=== PATIENT | female | born 1940 | race American Indian/Alaskan Native ===

== ENCOUNTER 2020-09-17 00:15 | Observation (INO) | payer MEDICARE ==
[2020-09-17 00:49] LABS: Basophils % (Auto) 0.6 % (0.0-1.8); Eosinophils # (Auto) 0.1 K/mm3 (0.0-0.4); Eosinophils % (Auto) 2.1 % (0.0-4.3); Hematocrit 37.2 % (30.3-42.9); Hemoglobin 12.4 gm/dl (10.1-14.3); Lymphocytes # (Auto) 1.6 K/mm3 (1.2-5.4); Mean Corpuscular HGB Conc 33 % (30-34); Mean Corpuscular Volume 90 fl (79-97); Monocytes # (Auto) 0.5 K/mm3 (0.0-0.8); Platelet Count 152 K/mm3 (140-440); Red Blood Count 4.12 M/mm3 (3.65-5.03); Red Cell Distribution Width 14.8 % (13.2-15.2)
--- NOTE | 2020-09-17 00:59 | XRay Report ---
CHEST PA AND LATERAL VIEWS INDICATION: chest pain. COMPARISON: None. FINDINGS: Support devices: None. Heart: Borderline enlarged. There has been prior sternotomy. Lungs/Pleura: No acute pulmonary or pleural findings. IMPRESSION: 1. No acute findings. Signer Name: Marco Schreiber MD Signed: 09/17/2020 12:54 AM Workstation Name: [id number]
[2020-09-17 01:27] LABS: Alanine Aminotransferase 11 units/L (7-56); Albumin 4.7 g/dL (3.9-5); BUN/Creatinine Ratio 16; Blood Urea Nitrogen 18 mg/dL (7-17); Calcium 8.9 mg/dL (8.4-10.2); Hemolysis Index 7
--- NOTE | 2020-09-17 07:20 | Event Note ---
ED Screening Note ED Screening Note: cp htn family upset with wait hx cva and numerous stents charge nurse aware This initial assessment/diagnostic orders/clinical plan/treatment(s) is/are subject to change based on patients health status, clinical progression and re- assessment by fellow clinical providers in the ED. Further treatment and workup at subsequent clinical providers discretion. Patient/guardian urged not to elope from the ED as their condition may be serious if not clinically assessed and managed. Initial orders include: ro acs
[2020-09-17] MEDS ORDERED: NITROGLYCERIN 2% OINT 1 GM TP ONE (07:57)
[2020-09-17] MEDS ORDERED: cloNIDine 0.1 MG TAB PO ONE (07:57)
--- NOTE | 2020-09-17 07:59 | Emergency Department Report ---
HPI - General Chief Complaint: Chest Pain Time Seen by Provider: 09/17/20 07:20 - HPI HPI: Room 23 The patient is a 80-year-old female present with a chief complaint of chest pain. Patient states since yesterday she has had intermittent substernal chest pain described as jabbing in nature. Patient admits to diaphoresis and shortness of breath associated with this chest pain but denies nausea/vomiting. Patient currently denies chest pain but states she had her last episode approximately 1 hour before this interview. The patient states she has also had bilateral lower extremity pain and swelling for months and has had ultrasounds in the past to rule out DVT. The patient states she was told this was due to a "problem" with her veins. Patient states she has received approximately 7-8 cardiac stents most recent of which was placed 3 to 4 years ago ED Past Medical Hx - Past Medical History Previous Medical History?: Yes Hx Hypertension: Yes Hx Heart Attack/AMI: Yes Hx COPD: Yes Hx Dementia: Yes Additional medical history: "watching kidneys" - Surgical History Past Surgical History?: Yes Hx Coronary Stent: Yes (7-8 cardiac stents) - Family History Family history: no significant - Social History Smoking Status: Former Smoker (None x30 years) Substance Use Type: None ED Review of Systems ROS: Stated complaint: CHEST PAIN Other details as noted in HPI Constitutional: diaphoresis Eyes: denies: eye pain ENT: denies: throat pain Respiratory: shortness of breath Cardiovascular: chest pain Endocrine: no symptoms reported Gastrointestinal: denies: nausea, vomiting Genitourinary: denies: dysuria Musculoskeletal: denies: back pain Skin: denies: lesions Neurological: denies: headache Physical Exam - Physical Exam Vital Signs: Vital Signs 09/17/20 09/17/20 00:20 07:21 Temperature 98.1 F Pulse Rate 89 62 Respiratory 18 18 Rate Blood Pressure 175/97 Blood Pressure 172/92 [Right] O2 Sat by Pulse 98 100 Oximetry Physical Exam: GENERAL: The patient is well-developed well-nourished female lying on stretcher not appearing to be in acute distress. [] HEENT: Normocephalic. Atraumatic. Extraocular motions are intact. Patient has moist mucous membranes. NECK: Supple. Trachea midline CHEST/LUNGS: Clear to auscultation. There is no respiratory distress noted. HEART/CARDIOVASCULAR: Regular. There is no tachycardia. There is no gallop rub or murmur. ABDOMEN: Abdomen is soft, nontender. Patient has normal bowel sounds. There is no abdominal distention. SKIN: There is no rash. There is no edema. There is no diaphoresis. NEURO: The patient is awake, alert, and oriented. The patient is cooperative. The patient has no focal neurologic deficits. The patient has normal speech MUSCULOSKELETAL: There is no evidence of acute injury. ED Course Vital Signs 09/17/20 09/17/20 00:20 07:21 Temperature 98.1 F Pulse Rate 89 62 Respiratory 18 18 Rate Blood Pressure 175/97 Blood Pressure 172/92 [Right] O2 Sat by Pulse 98 100 Oximetry ED Medical Decision Making - Lab Data Result diagrams: 09/17/20 00:37 09/17/20 00:37 Laboratory Tests 09/17/20 09/17/20 09/17/20 00:37 00:37 04:01 WBC 5.4 RBC 4.12 Hgb 12.4 Hct 37.2 MCV 90 MCH 30 MCHC 33 RDW 14.8 Plt Count 152 Lymph % (Auto) 29.0 [place] % (Auto) 9.0 H Eos % (Auto) 2.1 Baso % (Auto) 0.6 Lymph # (Auto) 1.6 [place] # (Auto) 0.5 Eos # (Auto) 0.1 Baso # (Auto) 0.0 Seg Neutrophils % 59.3 Seg Neutrophils # 3.2 Sodium 144 Potassium 4.1 Chloride 107.7 H Carbon Dioxide 25 Anion Gap 15 BUN 18 H Creatinine 1.1 Estimated GFR 48 BUN/Creatinine Ratio 16 Glucose 104 H Calcium 8.9 Total Bilirubin 0.40 AST 16 ALT 11 Alkaline Phosphatase 97 Troponin T < 0.010 < 0.010 Total Protein 6.6 Albumin 4.7 Albumin/Globulin Ratio 2.5 - EKG Data -: EKG Interpreted by Me EKG shows normal: sinus rhythm Rate: normal - EKG Data When compared to previous EKG there are: previous EKG unavailable Interpretation: nonspecific ST-T wave hannah (T wave inversion lead V3) - Radiology Data Radiology results: report reviewed (Chest x-ray), image reviewed (Chest x-ray) interpreted by me: Chest x-ray-no focal infiltrates, no pneumothorax. No foreign body seen [facility] [address] [place] [address] XRay Report Signed Patient: ROYCE BARR MR#: [id number] : 1940 Acct:[id number] Age/Sex: 80 / F ADM Date: 09/17/20 Loc: ED Attending Dr: Ordering Physician: MARK BANKS MD Date of Service: 09/17/20 Procedure(s): XR chest routine 2V Accession Number(s): [id number] cc: ED MD JOCELYN Fluoro Time In Minutes: CHEST PA AND LATERAL VIEWS INDICATION: chest pain. COMPARISON: None. FINDINGS: Support devices: None. Heart: Borderline enlarged. There has been prior s ternotomy. Lungs/Pleura: No acute pulmonary or pleural findings. IMPRESSION: 1. No acute findings. Signer Name: Marco Schreiber MD Signed: 09/17/2020 12:54 AM Workstation Name: [id number] Transcribed By: JC Dictated By: Marco Schreiber MD Electronically Authenticated By: Marco Schreiber MD Signed Date/Time: 09/17/2053 DD/ TD/TT: Print Cancel - Differential Diagnosis ACS, unstable angina, pericarditis, GERD Critical care attestation.: If time is entered above; I have spent that time in minutes in the direct care o f this critically ill patient, excluding procedure time. ED Disposition Clinical Impression: Chest pain Disposition: OP ADMIT IP TO THIS HOSP Is pt being admited?: Yes Does the pt Need Aspirin: Yes Condition: Fair Instructions: Nonspecific Chest Pain, Adult Referrals: PRIMARY CARE, [Primary Care Provider] - 3-5 Days Time of Disposition: 08:03 (Hospitalist paged) Heart Score - HEART Score History: Moderately suspicious EKG: Non-specific Age: > 65 Risk factors: 1-2 risk factors Troponin: < normal limit HEART Score: 5 - EKG Read Time Time EKG Completed: 00:27 EKG Read Time: 00:30
[2020-09-17] MEDS ORDERED: ASPIRIN 325 MG TAB PO ONE (08:01)
[2020-09-17] MEDS ORDERED: fentaNYL 100 MCG/2 ML INJ IV PRN (08:02)
[2020-09-17] MEDS ORDERED: ONDANSETRON 4 MG/2 ML INJ IV PRN (08:02)
[2020-09-17] MEDS ORDERED: fentaNYL 100 MCG/2 ML INJ IV ONE (09:40)
--- NOTE | 2020-09-17 11:34 | History and Physical Report ---
History of Present Illness Date of examination: 09/17/20 Date of admission: 09/17/20 08:06 Chief complaint: Chest pain of 1 day duration History of present illness: 80-year-old female patient from [place] visiting her daughter in [place] with significant past medical history of coronary artery disease status post multiple PCI unable to give me the particulars of 1 she had the last PCI, hypertension dementia COPD presented to the emergency room with intermittent substernal and left sided chest pain associated with shortness of breath and mild diaphoresis patient denies nausea vomiting or abdominal pain, Patient received aspirin and nitroglycerin with significant relief Patient denies fever or cough, no history of Covid infection or contact with Covid patients 2 sets of cardiac enzymes were negative, chest x-ray no acute abnormality EKG no acute ST-T changes The time of my evaluation patient denies any chest pain Past History Past Medical History: CAD, COPD, hypertension, hyperlipidemia, other (Dementia) Past Surgical History: PTCA (Multiple stents) Social history: full code. denies: smoking (Quit smoking), alcohol abuse, prescription drug abuse Family history: no significant family history Medications and Allergies Allergies Allergy/AdvReac Type Severity Reaction Status Date / Time zolpidem [From Ambien] Allergy Unknown Verified 09/17/20 08:22 Home Medications Medication Instructions Recorded Confirmed Last Taken Type Clopidogrel [Plavix] 75 mg PO QDAY 09/17/20 09/17/20 Unknown History Dicyclomine [Bentyl] 10 mg PO TID 09/17/20 09/17/20 Unknown History Ezetimibe/Simvastatin 1 each PO QHS 09/17/20 09/17/20 Unknown History [Ezetimibe-Simvastatin 10-40 mg] Furosemide [Lasix] 20 mg PO BID 09/17/20 09/17/20 Unknown History Galantamine HBr 4 mg PO QDAY 09/17/20 09/17/20 Unknown History Losartan Potassium 100 mg PO QDAY 09/17/20 09/17/20 Unknown History Meloxicam [Mobic] 7.5 mg PO BID 09/17/20 09/17/20 Unknown History Memantine [Namenda] 5 mg PO QDAY 09/17/20 09/17/20 Unknown History Potassium Chloride [K-Dur] 20 meq PO BID 09/17/20 09/17/20 Unknown History Active Meds: Active Medications Fentanyl (Fentanyl 100 Mcg/2 Ml Inj) 25 mcg IV ONCE PRN PRN Reason: Pain , Severe (7-10) Ondansetron HCl (Ondansetron 4 Mg/2 Ml Inj) 8 mg IV ONCE PRN PRN Reason: Nausea Review of Systems Constitutional: weakness, no weight loss, no weight gain, no fever, no chills Ears, nose, mouth and throat: no nasal congestion, no nasal discharge Cardiovascular: chest pain, shortness of breath, no orthopnea, no palpitations Respiratory: no cough, no shortness of breath Gastrointestinal: no abdominal pain, no nausea, no vomiting Genitourinary Female: no pelvic pain, no dysuria Musculoskeletal: no myalgias, no arthritis Integumentary: no rash, no lesions Neurological: weakness, no numbness, no seizures Psychiatric: no anxiety, no depression Endocrine: no cold intolerance, no heat intolerance, no polydipsia, no polyuria Hematologic/Lymphatic: no easy bruising, no easy bleeding Allergic/Immunologic: no urticaria, no allergic rhinitis Exam - Constitutional Vitals: Temp Pulse Resp BP Pulse Ox 98.1 F 59 L 14 130/67 99 09/17/20 00:20 09/17/20 10:16 09/17/20 10:16 09/17/20 10:16 09/17/20 10:16 General appearance: Present: mild distress, well-nourished - EENT Eyes: Present: PERRL, EOM intact - Neck Neck: Present: supple, normal ROM - Respiratory Respiratory effort: normal Respiratory: bilateral: diminished, negative: rales, rhonchi, wheezing - Cardiovascular Rhythm: regular Heart Sounds: Present: S1 & S2 - Extremities Extremities: no ischemia, No edema - Abdominal General gastrointestinal: Present: soft, non-tender, non-distended, normal bowel sounds - Integumentary Integumentary: Present: clear, warm - Musculoskeletal Musculoskeletal: strength equal bilaterally - Psychiatric Psychiatric: appropriate mood/affect, cooperative - Neurologic Neurologic: moves all extremities HEART Score - HEART Score EKG: Non-specific Age: > 65 Risk factors: 1-2 risk factors Troponin: Troponin T < 0.010 ng/mL (0.00-0.029) 09/17/20 04:01 Troponin: < normal limit Results - Labs CBC & Chem 7: 09/17/20 00:37 09/17/20 00:37 Labs: Abnormal lab results 09/17/20 09/17/20 Range/Units 00:37 00:37 [place] % (Auto) 9.0 H (0.0-7.3) % Chloride 107.7 H (98-107) mmol/L BUN 18 H (7-17) mg/dL Glucose 104 H (65-100) mg/dL Assessment and Plan --Chest pain/angina; Nitroglycerin sublingual as needed for chest pain Serial cardiac enzymes, EKG Echocardiogram for LV function ejection fraction Aspirin, Plavix, beta-blockers, RASHARD inhibitors, nitrates, statins Patient has significant coronary artery disease with multiple stents in the past We'll consult cardiology --CAD s/p multiple stents Resume patient's home medications cardiology consult --Hypertension; Moderate control, continue Losartan, Lasix, and low dose Coreg Closely monitor as needed hydralazine, --Dyslipidemia; continue lipid-lowering meds, Low-cholesterol diet --DVT prophylaxis; Lovenox --Full CODE STATUS We'll closely monitor the patient and adjust management as needed Plan of care reviewed with the patient and her nurse
--- NOTE | 2020-09-17 11:45 | Electrocardiograph Report ---
[facility] Test Date: 2020-09-17 Test Time: 00:27:03 Pat Name: ROYCE BARR Department: Room: A472 Gender: F Pharmacy Clinical Specialist: DANIELA : 1940 Requested By: ED DOC Order Number: [id number] Reading MD: Antonio Hwang Measurements Intervals [place] Rate: 71 P: 43 MS: 167 QRS: -4 QRSD: 90 T: 42 QT: QTc: 0 Interpretive Statements Sinus rhythm No previous ECG available for comparison Electronically Signed On 09-17-2020 11:44:57 EDT by Antonio Hwang
[2020-09-17] MEDS: DICYCLOMINE 10 MG CAP PO SCH ×2 (13:37→21:01)
[2020-09-17] MEDS ORDERED: MORPHINE 2 MG/1 ML INJ IV PRN (15:23)
[2020-09-17] MEDS ORDERED: NITROGLYCERIN 0.4 MG TAB SUBL SL PRN (15:23)
--- NOTE | 2020-09-17 16:26 | Consultation ---
History of Present Illness Consult date: 09/17/20 Requesting physician: SADE FOX Consult reason: chest pain History of present illness: This pt is a 80 year old female with a hx of HTN, AMI, CAD with multiple PCI (8), Dementia, COPD. She is previously unknown to our practice. She lived in [place] and is only in town to visit family. Pt presents to [facility] with c/o chest pain, dizziness x 2 days. Chest pain is described as sharp, intermittent non radiating and not worse with inspiration or exertion. She received ASA and NTG in ER to which she reported relief of symptoms. Pt is a rather poos historian, but denies any weakness, syncope, ALFA, Cough, ABD Pain, N/V/D, recent illness or exposures. Past History Past Medical History: acute CA, CAD (PCI x 8), COPD, hypertension, hyperlipidemia, other (Dementia) Past Surgical History: PTCA (Multiple stents) Social history: full code. denies: smoking (Quit smoking), alcohol abuse, prescription drug abuse Family history: no significant family history Medications and Allergies Allergies Allergy/AdvReac Type Severity Reaction Status Date / Time zolpidem [From Ambien] Allergy Unknown Verified 09/17/20 08:22 Home Medications Medication Instructions Recorded Confirmed Last Taken Type Clopidogrel [Plavix] 75 mg PO QDAY 09/17/20 09/17/20 Unknown History Dicyclomine [Bentyl] 10 mg PO TID 09/17/20 09/17/20 Unknown History Ezetimibe/Simvastatin 1 each PO QHS 09/17/20 09/17/20 Unknown History [Ezetimibe-Simvastatin 10-40 mg] Furosemide [Lasix] 20 mg PO BID 09/17/20 09/17/20 Unknown History Galantamine HBr 4 mg PO QDAY 09/17/20 09/17/20 Unknown History Losartan Potassium 100 mg PO QDAY 09/17/20 09/17/20 Unknown History Meloxicam [Mobic] 7.5 mg PO BID 09/17/20 09/17/20 Unknown History Memantine [Namenda] 5 mg PO QDAY 09/17/20 09/17/20 Unknown History Potassium Chloride [K-Dur] 20 meq PO BID 09/17/20 09/17/20 Unknown History Active Meds: Active Medications Carvedilol (Carvedilol 3.125 Mg Tab) 3.125 mg PO BID [facility] Clopidogrel Bisulfate (Clopidogrel 75 Mg Tab) 75 mg PO QDAY [facility] Dicyclomine HCl (Dicyclomine 10 Mg Cap) 10 mg PO TID [facility] Last Admin: 09/17/20 13:37 Dose: 10 mg Documented by: Ezetimibe (Ezetimibe 10 Mg Tab) 10 mg PO QHS [facility] Enoxaparin Sodium (Enoxaparin 40 Mg/0.4 Ml Inj) 40 mg SUB-Q QDAY@2200 [facility]; Protocol Galantamine Hydrobromide (Galantamine 4 Mg Tab) 4 mg PO QDAY [facility] Losartan Potassium (Losartan 50 Mg Tab) 100 mg PO QDAY [facility] Memantine (Memantine 5 Mg Tab) 5 mg PO QDAY [facility] Morphine Sulfate (Morphine 2 Mg/1 Ml Inj) 2 mg IV Q4H PRN PRN Reason: Pain, Moderate (4-6) Nitroglycerin (Nitroglycerin 0.4 Mg Tab Subl) 0.4 mg SL .Q5MIN PRN PRN Reason: Chest Pain Ondansetron HCl (Ondansetron 4 Mg/2 Ml Inj) 8 mg IV ONCE PRN PRN Reason: Nausea Pravastatin Sodium (Pravastatin 80 Mg Tab) 80 mg PO QHS [facility] Review of Systems Constitutional: no weight loss, no weight gain, no fever, no chills, no sweats Ears, nose, mouth and throat: no ear pain, no ear discharge, no nasal congestion, no nasal discharge, no sinus pressure Cardiovascular: chest pain, lightheadedness, no orthopnea, no palpitations, no rapid/irregular heart beat, no edema, no syncope, no shortness of breath Respiratory: no cough, no hemoptysis, no shortness of breath, no dyspnea on exertion Gastrointestinal: no abdominal pain, no nausea, no vomiting, no diarrhea Genitourinary Female: no pelvic pain, no flank pain Musculoskeletal: no neck stiffness, no neck pain, no shooting arm pain, no arm numbness/tingling, no low back pain, no shooting leg pain, no leg numbness/tingling Integumentary: no rash, no pruritis, no redness, no sores, no wounds, no jaundice Neurological: no head injury, no paralysis, no weakness, no parathesias, no numbness, no tingling, no seizures, no syncope Psychiatric: no anxiety Endocrine: no cold intolerance, no heat intolerance Hematologic/Lymphatic: no easy bruising, no easy bleeding Allergic/Immunologic: no urticaria Physical Examination Last Vital Signs Temp 98.2 F 09/17/20 11:33 Pulse 57 L 09/17/20 11:33 Resp 18 09/17/20 11:33 BP 160/63 09/17/20 11:33 Pulse Ox 100 09/17/20 11:33 General appearance: no acute distress HEENT: Positive: PERRL, Normocephaly, Mucus Membranes Moist Neck: Positive: neck supple, trachea midline Cardiac: Positive: Reg Rate and Rhythm, S1/S2 Lungs: Positive: clear to auscultation, Normal Breath Sounds Neuro: Positive: Grossly Intact Abdomen: Positive: Unremarkable, Soft Skin: Negative: Rash, Wound Musculoskeletal: No Pain Extremities: Present: upper extr. pulses, lower extr. pulses. Absent: edema Results 09/17/20 00:37 09/17/20 00:37 Cardiac Enzymes 09/17/20 Range/Units 00:37 AST 16 (5-40) units/L CBC 09/17/20 Range/Units 00:37 WBC 5.4 (4.5-11.0) K/mm3 RBC 4.12 (3.65-5.03) M/mm3 Hgb 12.4 (10.1-14.3) gm/dl Hct 37.2 (30.3-42.9) % Plt Count 152 (140-440) K/mm3 Lymph # (Auto) 1.6 (1.2-5.4) K/mm3 [place] # (Auto) 0.5 (0.0-0.8) K/mm3 Eos # (Auto) 0.1 (0.0-0.4) K/mm3 Baso # (Auto) 0.0 (0.0-0.1) K/mm3 Comprehensive Metabolic Panel 09/17/20 Range/Units 00:37 Sodium 144 (137-145) mmol/L Potassium 4.1 (3.6-5.0) mmol/L Chloride 107.7 H (98-107) mmol/L Carbon Dioxide 25 (22-30) mmol/L BUN 18 H (7-17) mg/dL Creatinine 1.1 (0.6-1.2) mg/dL Glucose 104 H (65-100) mg/dL Calcium 8.9 (8.4-10.2) mg/dL AST 16 (5-40) units/L ALT 11 (7-56) units/L Alkaline Phosphatase 97 (35-129) units/L Total Protein 6.6 (6.3-8.2) g/dL Albumin 4.7 (3.9-5) g/dL - Imaging and Cardiology Echo: pending EKG interpretations - Telemetry EKG Rhythm: Sinus Bradycardia - EKG Sinus rhythms and dysrhythmias: sinus rhythm Assessment and Plan This pt is a 80 year old female with a hx of HTN, AMI, CAD with multiple PCI (8), Dementia, COPD. She is previously unknown to our practice. She lived in [place] and is only in town to visit family. Pt presents to [facility] with c/o chest pain, dizziness x 2 days. Chest pain is described as sharp, intermittent non radiating and not worse with inspiration or exertion. She received ASA and NTG in ER to which she reported relief of symptoms. Pt is a rather poos historian, but denies any weakness, syncope, ALFA, Cough, ABD Pain, N/V/D, recent illness or exposures. Tele reviewed: SB 58. No events. 12 Lead reviewed: no STEMI. Troponins are negative x 3. AMI ruled out. Continue current cardiac regimen of Plavix, BB, ACEI, high dose statin in setting of extensive hx on AMI, CAD s/p PCI. repeat BMP in am. CXR reviewed: no acute findings. Echo pending. Lexiscan MPI Stress test in am. NPO after midnight. This pt was seen in conjunction with Dr adhikari who agrees with this assessment and plan of care. - Patient Problems (1) CAD (coronary artery disease) Current Visit: Yes Status: Acute (2) Stented coronary artery Current Visit: Yes Status: Acute (3) Dementia Current Visit: Yes Status: Acute (4) COPD (chronic obstructive pulmonary disease) Current Visit: Yes Status: Acute (5) Chest pain Current Visit: Yes Status: Acute
[2020-09-17] MEDS: carvediloL 3.125 MG TAB PO SCH (21:01)
[2020-09-17] MEDS: PRAVASTATIN 80 MG TAB PO SCH (21:01)
[2020-09-17] MEDS: ENOXAPARIN 40 MG/0.4 ML INJ SUB-Q SCH (21:01)
[2020-09-17] MEDS: EZETIMIBE 10 MG TAB PO SCH (21:01)
[2020-09-17] MEDS ORDERED: MELOXICAM 7.5 MG TAB PO SCH (22:00)
[2020-09-17] MEDS ORDERED: SIMVASTATIN PO SCH (22:00)
[2020-09-17] MEDS ORDERED: EZETIMIBE PO SCH (22:00)
[2020-09-17] MEDS ORDERED: [UNRECOGNIZED DRUG - OTHER] PO SCH (22:00)
[2020-09-18 05:48] LABS: Calcium 8.6 mg/dL (8.4-10.2); Chol/HDL Ratio 2.29 %
[2020-09-18] MEDS ORDERED: REGADENOSON 0.4 MG/5 ML INJ IV ONE ×2 (07:13→10:32)
[2020-09-18] MEDS ORDERED: NON-FORMULARY EACH (Losartan Potassium [Losartan Potassium] 100 MG Tablet) PO SCH (10:00)
--- NOTE | 2020-09-18 12:25 | Progress Note ---
Assessment and Plan Assessment and plan: 80-year-old female patient from [place] visiting her daughter in [place] with significant past medical history of coronary artery disease status post multiple PCI unable to give me the particulars of 1 she had the last PCI, hypertension dementia COPD presented to the emergency room with intermittent substernal and left sided chest pain associated with shortness of breath and mild diaphoresis patient denies nausea vomiting or abdominal pain, Patient received aspirin and nitroglycerin with significant relief Patient denies fever or cough, no history of Covid infection or contact with Covid patients 2 sets of cardiac enzymes were negative, chest x-ray no acute abnormality EKG no acute ST-T changes The time of my evaluation patient denies any chest pain 09/18: I had extensive discussion with the sweeper driver and per their recommendation Cardiology is consulted for CP, CAD hx PCIx8.. (09/18/20) Tele reviewed: SR 72. No events. Ddimer is noted to be elevated. Recommend further confirmatory testing per primary team (?CTA Chest/V/Q) AMI ruled out. Continue current cardiac regimen of Plavix, BB, ACEI, high dose statin in setting of extensive hx of AMI, CAD s/p multiple PCI. Echo reviewed (09/17/20): EF 55-60%. LV mild diastolic dysfunction. Mild TR, Mild MI. Lexiscan MPI Stress test is negative for ischemia. Pt in stable cardiac status. Chest pain does not appear to be cardiac in nature. Nothing further to add from cardiac standpoint. Pt should follow up with Dr Golden in our [place] office on 10/19/2020 at 2:45pm. A CTA chest has been ordered to rule out pulmonary embolism. Anticipate discharge in a.m. as contrast may preclude this be done today and to be done tomorrow. --Chest pain/angina; Nitroglycerin sublingual as needed for chest pain Serial cardiac enzymes, EKG Echocardiogram for LV function ejection fraction Aspirin, Plavix, beta-blockers, RASHARD inhibitors, nitrates, statins Patient has significant coronary artery disease with multiple stents in the past We'll consult cardiology --CAD s/p multiple stents Resume patient's home medications cardiology consult --Hypertension; Moderate control, continue Losartan, Lasix, and low dose Coreg Closely monitor as needed hydralazine, --Dyslipidemia; continue lipid-lowering meds, Low-cholesterol diet --COPD --Dementia --Left lower quadrant of vascular issues that is currently being worked up but could not explain appropriately what it was. --DVT prophylaxis; Lovenox --Full CODE STATUS We'll closely monitor the patient and adjust management as needed Plan of care reviewed with the patient and her nurse History Interval history: Patient seen and examined resting comfortably no new complaints at this time. Her daughter in the room was able to feel very down a lot of her medical condition. She apparently has had multiple issues some vascular issues also. 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 She has refused. Blood pressure at home Hospitalist Physical - Physical exam Narrative exam: VITAL SIGNS: Reviewed. GENERAL: The patient appears normally developed, Vital signs as documented. HEAD: No signs of head trauma. EYES: Pupils are equal. Extraocular motions intact. EARS: Hearing grossly intact. MOUTH: Oropharynx is normal. NECK: No adenopathy, no JVD. CHEST: Chest with clear breath sounds bilaterally. No wheezes, rales, or rhonchi. CARDIAC: Regular rate and rhythm. S1 and S2, without murmurs, gallops, or r ubs. VASCULAR: No Edema. Peripheral pulses normal and equal in all extremities. ABDOMEN: Soft, non tender and non distended. No rebound or guarding, and no masses palpated. Bowel Sounds normal. MUSCULOSKELETAL: Good range of motion of all major joints. Extremities without clubbing, cyanosis or edema. NEUROLOGIC EXAM: Alert and oriented x 3 No focal sensory or strength deficits. Speech normal. Follows commands. PSYCHIATRIC: Mood normal. SKIN: detail exam as documented in skin assessment - Constitutional Vitals: Temp Pulse Resp BP Pulse Ox 97.9 F 63 18 142/70 100 09/18/20 08:03 09/18/20 11:00 09/18/20 08:03 09/18/20 08:03 09/18/20 08:03 General appearance: Present: mild distress, well-nourished HEART Score - HEART Score EKG: Non-specific Age: > 65 Risk factors: 1-2 risk factors Troponin: Troponin T < 0.010 ng/mL (0.00-0.029) 09/17/20 10:22 Troponin: < normal limit Results - Labs CBC & Chem 7: 09/17/20 00:37 09/18/20 05:17 Labs: Laboratory Last Values WBC 5.4 K/mm3 (4.5-11.0) 09/17/20 00:37 RBC 4.12 M/mm3 (3.65-5.03) 09/17/20 00:37 Hgb 12.4 gm/dl (10.1-14.3) 09/17/20 00:37 Hct 37.2 % (30.3-42.9) 09/17/20 00:37 MCV 90 fl (79-97) 09/17/20 00:37 MCH 30 pg (28-32) 09/17/20 00:37 MCHC 33 % (30-34) 09/17/20 00:37 RDW 14.8 % (13.2-15.2) 09/17/20 00:37 Plt Count 152 K/mm3 (140-440) 09/17/20 00:37 Lymph % (Auto) 29.0 % (13.4-35.0) 09/17/20 00:37 [place] % (Auto) 9.0 % (0.0-7.3) H 09/17/20 00:37 Eos % (Auto) 2.1 % (0.0-4.3) 09/17/20 00:37 Baso % (Auto) 0.6 % (0.0-1.8) 09/17/20 00:37 Lymph # (Auto) 1.6 K/mm3 (1.2-5.4) 09/17/20 00:37 [place] # (Auto) 0.5 K/mm3 (0.0-0.8) 09/17/20 00:37 Eos # (Auto) 0.1 K/mm3 (0.0-0.4) 09/17/20 00:37 Baso # (Auto) 0.0 K/mm3 (0.0-0.1) 09/17/20 00:37 Seg Neutrophils % 59.3 % (40.0-70.0) 09/17/20 00:37 Seg Neutrophils # 3.2 K/mm3 (1.8-7.7) 09/17/20 00:37 D-Dimer 641.59 ng/mlDDU (0-234) H 09/18/20 05:17 Sodium 143 mmol/L (137-145) 09/18/20 05:17 Potassium 3.4 mmol/L (3.6-5.0) L 09/18/20 05:17 Chloride 108.7 mmol/L (98-107) H 09/18/20 05:17 Carbon Dioxide 23 mmol/L (22-30) 09/18/20 05:17 Anion Gap 15 mmol/L 09/18/20 05:17 BUN 18 mg/dL (7-17) H 09/18/20 05:17 Creatinine 1.1 mg/dL (0.6-1.2) 09/18/20 05:17 Estimated GFR 58 ml/min 09/18/20 05:17 BUN/Creatinine Ratio 16 % 09/18/20 05:17 Glucose 93 mg/dL (65-100) 09/18/20 05:17 Calcium 8.6 mg/dL (8.4-10.2) 09/18/20 05:17 Total Bilirubin 0.40 mg/dL (0.1-1.2) 09/17/20 00:37 AST 16 units/L (5-40) 09/17/20 00:37 ALT 11 units/L (7-56) 09/17/20 00:37 Alkaline Phosphatase 97 units/L (35-129) 09/17/20 00:37 Troponin T < 0.010 ng/mL (0.00-0.029) 09/17/20 10:22 Total Protein 6.6 g/dL (6.3-8.2) 09/17/20 00:37 Albumin 4.7 g/dL (3.9-5) 09/17/20 00:37 Albumin/Globulin Ratio 2.5 % 09/17/20 00:37 Triglycerides 116 mg/dL (2-149) 09/18/20 05:17 Cholesterol 163 mg/dL (50-199) 09/18/20 05:17 LDL Cholesterol Direct 86 mg/dL (50-130) 09/18/20 05:17 HDL Cholesterol 71 mg/dL (40-59) H 09/18/20 05:17 Cholesterol/HDL Ratio 2.29 % 09/18/20 05:17 Barrett/IV: Voiding Method Toilet Active Medications - Current Medications Current Medications: Generic Name Dose Route Start Last Admin Trade Name Freq PRN Reason Stop Dose Admin Aspirin 81 mg 09/18/20 10:00 Aspirin 81 Mg Tab Chew PO QDAY QAMAR Carvedilol 3.125 mg 09/17/20 22:00 09/17/20 21:01 Carvedilol 3.125 Mg Tab PO 3.125 mg BID QAMAR Administration Clopidogrel Bisulfate 75 mg 09/18/20 10:00 Clopidogrel 75 Mg Tab PO QDAY QAMAR Dicyclomine HCl 10 mg 09/17/20 14:00 09/17/20 21:01 Dicyclomine 10 Mg Cap PO 10 mg TID QAMAR Administration Ezetimibe 10 mg 09/17/20 22:00 09/17/20 21:01 Ezetimibe 10 Mg Tab PO 10 mg QHS QAMAR Administration Enoxaparin Sodium 40 mg 09/17/20 22:00 09/17/20 21:01 Enoxaparin 40 Mg/0.4 Ml Inj SUB-Q 40 mg QDAY@2200 [facility] Administration Protocol Galantamine Hydrobromide 4 mg 09/18/20 10:00 Galantamine 4 Mg Tab PO QDAY [facility] Losartan Potassium 100 mg 09/18/20 10:00 Losartan 50 Mg Tab PO QDAY [facility] Memantine 5 mg 09/18/20 10:00 Memantine 5 Mg Tab PO QDAY [facility] Morphine Sulfate 2 mg 09/17/20 15:23 Morphine 2 Mg/1 Ml Inj IV Q4H PRN Pain, Moderate (4-6) Nitroglycerin 0.4 mg 09/17/20 15:23 Nitroglycerin 0.4 Mg Tab Subl SL .Q5MIN PRN Chest Pain Ondansetron HCl 8 mg 09/17/20 08:02 Ondansetron 4 Mg/2 Ml Inj IV ONCE PRN Nausea Pravastatin Sodium 80 mg 09/17/20 22:00 09/17/20 21:01 Pravastatin 80 Mg Tab PO 80 mg QHS [facility] Administration
--- NOTE | 2020-09-18 12:42 | Progress Note ---
Assessment and Plan This pt is a 80 year old female with a hx of HTN, AMI, CAD with multiple PCI (8), Dementia, COPD. She is previously unknown to our practice. She lived in [place] and is only in town to visit family. Pt presents to [facility] with c/o chest pain, dizziness x 2 days. Chest pain is described as sharp, intermittent non radiating and not worse with inspiration or exertion. She received ASA and NTG in ER to which she reported relief of symptoms. Pt is a rather poor historian, but denies any weakness, syncope, ALFA, Cough, ABD Pain, N/V/D, recent illness or exposures. Cardiology is consulted for CP, CAD hx PCIx8.. (09/18/20) Tele reviewed: SR 72. No events. Ddimer is noted to be elevated. Recommend further confirmatory testing per primary team (?CTA Chest/V/Q) AMI ruled out. Continue current cardiac regimen of Plavix, BB, ACEI, high dose statin in setting of extensive hx of AMI, CAD s/p multiple PCI. Echo reviewed (09/17/20): EF 55-60%. LV mild diastolic dysfunction. Mild TR, Mild GA. Lexiscan MPI Stress test is negative for ischemia. Pt in stable cardiac status. Chest pain does not appear to be cardiac in nature. Nothing further to add from cardiac standpoint. Pt should follow up with Dr Golden in our [place] office on 10/19/2020 at 2:45pm. This pt was seen in conjunction with Dr Golden who agrees with this assessment and plan of care. - Patient Problems (1) CAD (coronary artery disease) Current Visit: Yes Status: Acute (2) Stented coronary artery Current Visit: Yes Status: Acute (3) Dementia Current Visit: Yes Status: Acute (4) COPD (chronic obstructive pulmonary disease) Current Visit: Yes Status: Acute (5) Chest pain Current Visit: Yes Status: Acute Subjective Date of service: 09/18/20 Principal diagnosis: Chest Pain Interval history: Pt was seen in stress lab, resting comfortably in stretcher. Tele reviewed: SR 72. No events. Objective Last Vital Signs Temp 97.9 F 09/18/20 08:03 Pulse 63 09/18/20 11:00 Resp 18 09/18/20 08:03 BP 142/70 09/18/20 08:03 Pulse Ox 100 09/18/20 08:03 - Physical Examination General: Appears Well HEENT: Positive: PERRL, Normocephaly, Mucus Membranes Moist Neck: Positive: neck supple, trachea midline Cardiac: Positive: Reg Rate and Rhythm, S1/S2 Lungs: Positive: clear to auscultation, Normal Breath Sounds Neuro: Positive: Grossly Intact Abdomen: Positive: Unremarkable, Soft Skin: Negative: Rash, Wound Musculoskeletal: No Pain Extremities: Present: upper extr. pulses, lower extr. pulses. Absent: edema - Labs and Meds Lipids 09/18/20 Range/Units 05:17 Triglycerides 116 (2-149) mg/dL Cholesterol 163 (50-199) mg/dL HDL Cholesterol 71 H (40-59) mg/dL Cholesterol/HDL Ratio 2.29 % Comprehensive Metabolic Panel 09/18/20 Range/Units 05:17 Sodium 143 (137-145) mmol/L Potassium 3.4 L (3.6-5.0) mmol/L Chloride 108.7 H (98-107) mmol/L Carbon Dioxide 23 (22-30) mmol/L BUN 18 H (7-17) mg/dL Creatinine 1.1 (0.6-1.2) mg/dL Glucose 93 (65-100) mg/dL Calcium 8.6 (8.4-10.2) mg/dL - Imaging and Cardiology Echo: pending - Telemetry EKG Rhythm: Sinus Rhythm - EKG Sinus rhythms and dysrhythmias: sinus rhythm
--- NOTE | 2020-09-18 13:34 | Vascular Lab Report ---
DUPLEX DOPPLER LOWER EXTREMITY VEINS, BILATERAL INDICATION: dvt. TECHNIQUE: Duplex doppler imaging was performed through the veins of both lower extremities using ve nous compression and other maneuvers. COMPARISON: No relevant prior imaging study available. FINDINGS: Right Common femoral vein: Negative. Right Superficial femoral vein: Negative. Right Popliteal vein: Negative. Right Calf veins: Negative. Left Common femoral vein: Negative. Left Superficial femoral vein: Negative. Left Popliteal vein: Negative. Left Calf veins: Negative. Additional findings: Moderate right popliteal cyst is noted.. IMPRESSION: No sonographic evidence for DVT in either lower extremity. Right popliteal cyst. Signer Name: Kaiden Mcqueen Jr, MD Signed: 09/18/2020 1:30 PM Workstation Name: [id number]
--- NOTE | 2020-09-18 13:47 | Nuclear Medicine Report ---
APPROVED REPORT Exam: Nuclear Stress Test BMI: 0 Stress Test Details Stress Test: Pharmacologic stress testing performed using 0.4 mg of regadenoson per 5 mL given IV over 10 seconds. HR Resting HR: 61 bpmMax Heart Rate (APMHR): 142 bpm Max HR Achieved: 95 bpmTarget HR (85% APMHR): 120 bpm % of APMHR: 66 Recovery HR: 84 bpm HR response to stress: Normal HR response to stress BP Resting BP: 153/65 mmHg Max BP: 153/72 mmHg Recovery BP: 129/69 mmHg BP response to stress: Normal blood pressure response to stress. ECG Resting ECG: Sinus Rhythm Stress ECG: Sinus Rhythm Clinical Reason for Termination: Completed protocol NM EXAM: Myocardial Perfusion REST/STRESS Resting Data Rest SPECT myocardial perfusion imaging was performed in supine position 45 minutes following the intravenous injection of 10 mCi of Tc-99m Myoview. Time of rest injection: 0720 Pharmacologic Stress Pharmacologic stress test was performed by injecting Regadenoson 0.4 mg IV push followed by the intravenous injection of 28 mCi of Tc-99m Myoview. Time of stress injection: 1055 Gated Stress SPECT was performed 30 minutes after stress injection. The images were gated to evaluate regional wall motion and calculate left ventricular ejection fraction. Study Data TID = 0.89. Perfusion Nuclear Conclusion ECG Findings: negative for ischemia Clinical Findings: negative for ischemia Nuclear Findings: negative for ischemia Exercise Capacity: not assessed Left Ventricular Function: normal Normal study. No scintigraphic evidence for myocardial ischemia or scar. Normal left ventricular size and function with no regional wall motion abnormalities.
--- NOTE | 2020-09-18 17:01 | Cat Scan Report ---
CTA CHEST WITH IV CONTRAST INDICATION: shortness of breath. TECHNIQUE: Axial CT images were obtained through the chest after injection of 100 cc Omni 350 IV contrast. 3 deya ne MIP reconstructions were produced. All CT scans at this location are performed using CT dose reduc tion for ALARA by means of automated exposure control. COMPARISON: None available. FINDINGS: PULMONARY ARTERIES: No pulmonary emboli. THORACIC AORTA: No acute abnormality. HEART: Sternotomy, CABG and moderate cardiomegaly. CORONARY ARTERIES: No significant calcification. PLEURA: No pleural effusion. No pneumothorax. LYMPH NODES: No significant adenopathy. LUNGS: No acute air space or interstitial disease. ADDITIONAL FINDINGS: None. UPPER ABDOMEN: Gallbladder surgically absent. No acute findings. SKELETAL STRUCTURES: No significant osseous abnormality. IMPRESSION: 1. No CT evidence for pulmonary embolism. 2. No acute findings. Signer Name: Estuardo Bynum MD Signed: 09/18/2020 4:56 PM Workstation Name: [id number]
--- NOTE | 2020-09-18 17:16 | Electrocardiograph Report ---
[facility] Test Date: 2020-09-18 Test Time: 07:12:23 Pat Name: ROYCE BARR Department: Room: A472 1 Gender: F Fuel Truck Driver: LUIS MANUEL : 1940 Requested By: DERIK DUMONT Order Number: [id number] Reading MD: Antonio Hwang Measurements Intervals [place] Rate: 64 P: 39 IA: 191 QRS: -7 QRSD: 79 T: QT: 400 QTc: 409 Interpretive Statements Sinus rhythm Atrial premature complex Nonspecific T abnrm, anterolateral leads Compared to ECG 09/17/2020 00:27:03 Electronically Signed On 09-18-2020 17:15:54 EDT by Antonio Hwang
[2020-09-18] MEDS: DICYCLOMINE 10 MG CAP PO SCH ×3 (18:21→21:38)
[2020-09-18] MEDS: ASPIRIN 81 MG TAB CHEW PO SCH (18:22)
[2020-09-18] MEDS: carvediloL 3.125 MG TAB PO SCH ×2 (18:22→21:37)
[2020-09-18] MEDS: MEMANTINE 5 MG TAB PO SCH (18:22)
[2020-09-18] MEDS: CLOPIDOGREL 75 MG TAB PO SCH (18:22)
[2020-09-18] MEDS: GALANTAMINE 4 MG TAB PO SCH (18:23)
[2020-09-18] MEDS: LOSARTAN 50 MG TAB PO SCH (18:24)
[2020-09-18] MEDS: EZETIMIBE 10 MG TAB PO SCH (21:37)
[2020-09-18] MEDS: ENOXAPARIN 40 MG/0.4 ML INJ SUB-Q SCH (21:37)
[2020-09-18] MEDS: PRAVASTATIN 80 MG TAB PO SCH (21:37)
[2020-09-19 08:19] VITALS: BP 153/64
[2020-09-19] MEDS: DICYCLOMINE 10 MG CAP PO SCH (08:52)
[2020-09-19] MEDS: ASPIRIN 81 MG TAB CHEW PO SCH (09:39)
[2020-09-19] MEDS: MEMANTINE 5 MG TAB PO SCH (09:39)
[2020-09-19] MEDS: CLOPIDOGREL 75 MG TAB PO SCH (09:40)
[2020-09-19] MEDS: LOSARTAN 50 MG TAB PO SCH (09:40)
[2020-09-19] MEDS: GALANTAMINE 4 MG TAB PO SCH (09:41)
[2020-09-19] MEDS: carvediloL 3.125 MG TAB PO SCH (09:41)
--- NOTE | 2020-09-19 10:30 | Discharge Summary ---
Providers - Providers Date of Admission: 09/17/20 08:06 Attending physician: ARAVIND YANES MD 09/17/20 15:38 Consult to Physician [CONS] Routine Comment: Consulting Provider: IRAIDA GOLDEN Physician Instructions: Reason For Exam: Chest pain/h/o CAD s/p PCI[6-7 stents] Primary care physician: [employer] Hospitalization Reason for admission: Chest pain Condition: Fair Hospital course: 80-year-old female patient from [place] visiting her daughter in [place] with significant past medical history of coronary artery disease status post multiple PCI unable to give me the particulars of 1 she had the last PCI, hypertension dementia COPD presented to the emergency room with intermittent substernal and left sided chest pain associated with shortness of breath and mild diaphoresis patient denies nausea vomiting or abdominal pain, Patient received aspirin and nitroglycerin with significant relief Patient denies fever or cough, no history of Covid infection or contact with Covid patients 2 sets of cardiac enzymes were negative, chest x-ray no acute abnormality EKG no acute ST-T changes The time of my evaluation patient denies any chest pain 09/18: I had extensive discussion with the half backer and per their recommendation Cardiology is consulted for CP, CAD hx PCIx8.. (09/18/20) Tele reviewed: SR 72. No events. Ddimer is noted to be elevated. Recommend further confirmatory testing per primary team (?CTA Chest/V/Q) AMI ruled out. Continue current cardiac regimen of Plavix, BB, ACEI, high dose statin in setting of extensive hx of AMI, CAD s/p multiple PCI. Echo reviewed (09/17/20): EF 55-60%. LV mild diastolic dysfunction. Mild TR, Mild MT. Lexiscan MPI Stress test is negative for ischemia. Pt in stable cardiac status. Chest pain does not appear to be cardiac in nature. Nothing further to add from cardiac standpoint. Pt should follow up with Dr Golden in our [place] office on 10/19/2020 at 2:45pm. A CTA chest has been ordered to rule out pulmonary embolism. Anticipate discharge in a.m. as contrast may preclude this be done today and to be done tomorrow. 09/19: No new complaints. CTA reviewed no pulmonary embolism noted. Patient clinically stable for discharge and to follow-up with cardiology as recommended above. --Atypical chest pain secondary to costochondritis --CAD s/p multiple stents Resume patient's home medications cardiology consult --COPD without acute exacerbation --Hypertension; with urgency Moderate control, continue Losartan, Lasix, and low dose Coreg Closely monitor as needed hydralazine, --Dyslipidemia; continue lipid-lowering meds, Low-cholesterol diet --COPD --Dementia --Left lower quadrant of vascular issues that is currently being worked up but could not explain appropriately what it was. Disposition: DC-01 TO HOME OR SELFCARE Final Discharge Diagnosis (Prints w/discharge instructions): Atypical chest pain secondary to costochondritis Time spent for discharge: 35 minutes Core Measure Documentation - Palliative Care Palliative Care/ Comfort Measures: Not Applicable - Core Measures Any of the following diagnoses?: none Exam - Physical Exam Narrative exam: VITAL SIGNS: Reviewed. GENERAL: The patient appears normally developed, Vital signs as documented. HEAD: No signs of head trauma. EYES: Pupils are equal. Extraocular motions intact. EARS: Hearing grossly intact. MOUTH: Oropharynx is normal. NECK: No adenopathy, no JVD. CHEST: Chest with clear breath sounds bilaterally. No wheezes, rales, or rhonchi. CARDIAC: Regular rate and rhythm. S1 and S2, without murmurs, gallops, or rubs. VASCULAR: No Edema. Peripheral pulses normal and equal in all extremities. ABDOMEN: Soft, non tender and non distended. No rebound or guarding, and no masses palpated. Bowel Sounds normal. MUSCULOSKELETAL: Good range of motion of all major joints. Extremities without clubbing, cyanosis or edema. NEUROLOGIC EXAM: Alert and oriented x 3 No focal sensory or strength deficits. Speech normal. Follows commands. PSYCHIATRIC: Mood normal. SKIN: detail exam as documented in skin assessment - Constitutional Vitals: Temp Pulse Resp BP Pulse Ox 98.0 F 64 18 153/64 98 09/19/20 07:51 09/19/20 09:41 09/19/20 07:51 09/19/20 09:41 09/19/20 07:51 Plan Activity: advance as tolerated, fall precautions Diet: low fat Special Instructions: record daily weights, record daily BP diary Follow up with: GISEL MARSH MD [Primary Care Provider] - 3-5 Days IRAIDA GOLDEN MD [Staff Physician] - 14 Days Prescriptions: cloNIDine [Catapres] 0.1 mg PO DAILY PRN #15 tablet PRN Reason: Hypertension carvediloL [Coreg] 3.125 mg PO BID #30 tablet
--- NOTE | 2020-09-20 11:28 | Treadmill Report ---
[facility] Test Date: 2020-09-18 Test Time: 09:38:25 Pat Name: ROYCE BARR Department: Room: A472 1 Gender: F [employer] Manager: Jennifer Alvarado : 1940 Requested By: FREEMAN SOMMER Order Number: [id number] Reading MD: Nithin Valdes Interpretive Statements Electronically Signed On 09-20-2020 11:27:39 EDT by Nithin Valdes
== END 2020-09-19 12:10 | disposition home or self-care (01) ==
LOC: ED 00:15 → 4A 08:06
PROVIDERS: ADMIT Internal Medicine; ATTEND Internal Medicine
DX: I25.10 Atherosclerotic heart disease of native coronary artery without angina pectoris (principal); I10 Essential (primary) hypertension; E78.5 Hyperlipidemia, unspecified; F02.80 Dementia in other diseases classified elsewhere, unspecified severity, without behavioral disturbance, psychotic disturbance, mood disturbance, and anxiety; I25.2 Old myocardial infarction; J44.9 Chronic obstructive pulmonary disease, unspecified; R07.89 Other chest pain; Z95.1 Presence of aortocoronary bypass graft; Z79.82 Long term (current) use of aspirin; Z79.01 Long term (current) use of anticoagulants; Z87.891 Personal history of nicotine dependence
CPT/HCPCS: 36415; 71046; 71275; 78452; 80048; 80053; 80061; 84484; 85025; 85379; 93005; 93017; 93306; 93970; 96372; 96374; 99285; A9270; A9502; G0378; J1650; J2785; J3010; Q9967